=== PATIENT | male | born 1970 | race Caucasian/White ===

== ENCOUNTER 2021-03-23 17:46 | Emergency (ER) | payer SELFPAY ==
[~2021-03-23] VITALS: Ht 172.7 cm; Wt 79.0 kg
[2021-03-24] MEDS ORDERED: DOXYCYCLINE HYCLATE 100MG TABLET PO ONE (05:25)
[2021-03-24 05:49] VITALS: BP 134/79
== END 2021-03-24 05:51 | disposition home or self-care (01) ==
LOC: M ED 17:46
DX: S40.861A Insect bite (nonvenomous) of right upper arm, initial encounter (principal); W57.XXXA Bitten or stung by nonvenomous insect and other nonvenomous arthropods, initial encounter; Y92.9 Unspecified place or not applicable; Y93.9 Activity, unspecified; Y99.9 Unspecified external cause status; F17.200 Nicotine dependence, unspecified, uncomplicated

== ENCOUNTER 2021-10-19 14:45 | Emergency (ER) | payer BC, SELFPAY ==
[~2021-10-19] VITALS: Ht 172.7 cm; Wt 75.0 kg
[2021-10-19] MEDS ORDERED: IBUPROFEN 800 MG TAB PO ONE (19:05)
[2021-10-19] MEDS ORDERED: CYCL-707 PO (19:07)
[2021-10-19 19:22] VITALS: BP 136/77
== END 2021-10-19 19:23 | disposition home or self-care (01) ==
LOC: M ED 14:45
DX: S29.011A Strain of muscle and tendon of front wall of thorax, initial encounter (principal); R07.81 Pleurodynia; X50.0XXA Overexertion from strenuous movement or load, initial encounter; Y92.89 Other specified places as the place of occurrence of the external cause; Y93.89 Activity, other specified; Y99.0 Civilian activity done for income or pay; F17.200 Nicotine dependence, unspecified, uncomplicated

== ENCOUNTER 2022-05-04 17:30 | Emergency (ER) | payer BC, OTHER ==
[~2022-05-04] VITALS: Ht 172.7 cm; Wt 80.0 kg
[~2022-05-04 17:30] MED LIST: CYCL-707 PO
[2022-05-04 21:40] VITALS: BP 130/76
== END 2022-05-04 22:38 | disposition home or self-care (01) ==
LOC: M ED 17:30
DX: S93.601A Unspecified sprain of right foot, initial encounter (principal); X50.1XXA Overexertion from prolonged static or awkward postures, initial encounter; Y99.0 Civilian activity done for income or pay; F17.200 Nicotine dependence, unspecified, uncomplicated

== ENCOUNTER → 2024-02-28 | Outpatient (REF) | payer BC ==
[2024-02-28 20:08] LABS: THYROID STIMULATING HORMONE 1.527 uIU/ML (0.55-4.78)
[2024-02-28 20:10] LABS: TOTAL 25(OH) VITAMIN D 25.1 NG/ML (20.0-100.0)
[2024-02-28 20:11] LABS: ALKALINE PHOSPHATASE 77 U/L (46-116); ALT/SGPT 17 U/L (7.0-40); AST/SGOT 13 U/L (<34); BILIRUBIN,TOTAL 0.3 MG/DL (0.3-1.2); BLOOD UREA NITROGEN 16 MG/DL (9-23); CALCIUM LEVEL 9.2 MG/DL (8.5-10.1); CARBON DIOXIDE LEVEL 27 MMOL/L (20-31); CHLORIDE LEVEL 105 MMOL/L (98-107); CHOLESTEROL LEVEL 205 MG/DL (<200); CHOLESTEROL RISK RATIO 5.15 (<5); GLOMERULAR FILTRATION RATE > 60.0 (>56); GLUCOSE, FASTING 83 MG/DL (60-100); HDL CHOLESTEROL 39.8 MG/DL (>40); LDL CHOLESTEROL 126.4 MG/DL (<100); MAGNESIUM LEVEL 2.2 MG/DL (1.8-2.4); NON-HDL-C 165.2 MG/DL; POTASSIUM SERUM 4.7 MMOL/L (3.5-5.1); SODIUM LEVEL 138 MMOL/L (136-145); TOTAL PROTEIN 6.8 G/DL (5.7-8.2); TRIGLYCERIDES LEVEL 194 MG/DL (<150)
== END ==
LOC: M LAB REF 16:44
PROVIDERS: ATTEND Physician Assistant
DX: R25.2 Cramp and spasm (principal); E55.9 Vitamin D deficiency, unspecified; Z13.220 Encounter for screening for lipoid disorders

== ENCOUNTER → 2024-03-20 | Outpatient (CLI) | payer BC | LOC: M RAD 09:36 | PROVIDERS: ATTEND Physician Assistant | DX: M25.521 Pain in right elbow (principal) ==

== ENCOUNTER → 2024-04-17 | Outpatient (CLI) | payer BC | LOC: M RAD 13:14 | PROVIDERS: ATTEND Physician Assistant | DX: Z12.2 Encounter for screening for malignant neoplasm of respiratory organs (principal); F17.210 Nicotine dependence, cigarettes, uncomplicated; I25.10 Atherosclerotic heart disease of native coronary artery without angina pectoris ==

== ENCOUNTER 2024-08-09 10:08 | Day surgery (SDC) | payer BC ==
[~2024-08-09] VITALS: Ht 172.7 cm; Wt 75.7 kg
[~2024-08-09 10:08] MED LIST changes: +ATOR1TAB21 PO
[2024-08-09] MEDS ORDERED: LIDOCAINE 2% 100MG/5ML SDV (FOR ANES.) As Ordered ONE (11:31)
[2024-08-09] MEDS ORDERED: propofoL 200 MG/20 ML VIAL As Ordered ONE (11:31)
[2024-08-09 12:14] VITALS: TEMP 98
[2024-08-09 12:36] VITALS: BP 126/77; O2SAT 98
== END 2024-08-09 12:37 | disposition home or self-care (01) ==
LOC: M OPP 10:08
PROVIDERS: ATTEND Surgery
DX: Z12.11 Encounter for screening for malignant neoplasm of colon (principal); D12.6 Benign neoplasm of colon, unspecified; R19.5 Other fecal abnormalities; Z79.899 Other long term (current) drug therapy; F17.210 Nicotine dependence, cigarettes, uncomplicated